=== PATIENT | female | born 1955 | race Caucasian/White ===

== ENCOUNTER → 2017-02-09 | Outpatient (CLI) | payer BC ==
[~2017-02-09] MED LIST: CETI10TA84 PO; CHOL2000 PO; CYAN500T13 PO; FLEC100T21 PO; LEVO75TA PO; METO25TA3 PO; MULTTAB58 PO; PILO5TAB2 PO; PRMVC PV; RALO60TA12 PO; RIVA1TAB4 PO; SIMV20TA5 PO
--- NOTE | 2017-02-10 13:06 | MAMMOGRAPHY REPORT ---
BILATERAL DIGITAL SCREENING MAMMOGRAM TOMOSYNTHESIS WITH CAD: 02/09/2017 CLINICAL HISTORY: Routine screening. TECHNIQUE: Breast tomosynthesis in addition to standard 2D mammography was performed. Current study was also evaluated with a Computer Aided Detection (CAD) system. COMPARISON: Comparison is made to exams dated: 02/04/2016 mammogram, 01/22/2015 mammogram, 12/12/2013 ma mmogram, 12/06/2012 mammogram, 12/03/2011 mammogram, and 10/20/2010 mammogram - [facility]. BREAST COMPOSITION: The tissue of both breasts is heterogeneously dense, which may obscure small mas ses. FINDINGS: There is a stable intramammary lymph node in the upper outer posterior left breast. No macdonald spicious mass, architectural distortion or cluster of microcalcifications is seen. IMPRESSION: ACR BI-RADS CATEGORY 1: NEGATIVE There is no mammographic evidence of malignancy. A 1 year screening mammogram is recommended. The pa tient will receive written notification of the results. Approximately 10% of breast cancers are not detected with mammography. A negative mammographic report should not delay biopsy if a clinically suggestive mass is present. Daisy Patiño M.D. ay/:02/09/2017 16:44:21 [place]: Jose Alberto JOSEPH(R)(M), [facility] letter sent: Normal 1/2 BI-RADS Code: ACR BI-RADS Category 1: Negative
== END | disposition home or self-care (01) ==
LOC: C.MAMM 14:02
DX: Z12.31 Encounter for screening mammogram for malignant neoplasm of breast (principal)

== ENCOUNTER → 2018-04-04 | Outpatient (CLI) | payer OTHER ==
[~2018-04-04] MED LIST changes: -RALO60TA12 PO; +RALO60TA30 PO
== END | disposition home or self-care (01) ==
LOC: C.MAMM 10:30
DX: M85.88 Other specified disorders of bone density and structure, other site (principal)